=== PATIENT | male | born 2000 | race Caucasian/White ===

== ENCOUNTER 2022-06-30 17:43 | Emergency (ER) | payer OTHER, SELFPAY ==
[2022-06-30 17:54] VITALS: BP 143/74; PULSE 77; RESP 16; TEMP 36.8; O2SAT 100
--- NOTE | 2022-06-30 18:34 | ED.MALEGU ---
HPI - Male Genitourinary General Chief complaint: Urogenital-Male Stated complaint: Unspecified Time Seen by Provider: 06/30/22 18:40 Source: patient, RN notes reviewed and old records reviewed Mode of arrival: ambulatory Limitations: no limitations History of Present Illness HPI Narrative: 21 year old male who presents to expresses concern over girlfriend getting frequently yeast infection concerned he may have yeast infection but denies any drainage or any itching or any redness of penis or excoriation.Patient reports that his girlfriend was treated for yeast infection recently Patient denies any concern for STD exposure Patient denies any urinary frequency urgency or any burning with urination, no testicle pain or any swelling.. MD Complaint: other (concern of yeast infection) Associated symptoms: Reports other (no symptoms) Related Data Sexually active: Yes Home Medications Medication Instructions Recorded Confirmed hydroxyzine HCl 25 mg tablet mg 06/30/22 Allergies Allergy/AdvReac Type Severity Reaction Status Date / Time Penicillins Allergy Severe swelling Verified 09/01/18 18:47 Review of Systems Review of Systems: CONSTITUTIONAL: Denies fever, chills, or sweats. CARDIOVASCULAR: Denies chest pain, palpitations, or edema. RESPIRATORY: Denies cough or dyspnea. GASTROINTESTINAL: Denies abdominal pain, nausea, vomiting, or diarrhea. GENITOURINARY: Denies dysuria, frequency, urgency. Denies flank pain or hematuria, denies any itching or any penis drainage or redness or excoriation SKIN: Denies rash or itching. MUSCULOSKELETAL: Denies back pain or myalgia. Denies CVA tenderness NEUROLOGIC: Denies headache All systems reviewed & are unremarkable except as noted in HPI and below PMFSH Past Medical History Medical History (Updated 07/02/22 @ 08:01 by Dana Alatorre NP) Anxiety Social History Social History (Updated 07/02/22 @ 08:05 by Dana Alatorre NP) Smoking status: Smoker, status unknown Alcohol intake: unknown Living arrangements: with family Gender identity (if verbalized by the patient): Male Comments At time of signature, agree with nursing past medical, surgical, social and family history. There is no relevant family history pertinent to the presenting complaint Exam Narrative: GENERAL: Well-appearing, well-nourished, and in no acute distress. HEAD: Normocephalic, atraumatic. NECK: Supple. no lymphadenopathy CHEST: Clear to auscultation. No respiratory distress.SAO2 100% on room air HEART: Regular rate and rhythm. No murmur heard. Normal peripheral pulses. ABDOMEN: Soft, nontender, nondistended, normal active bowel sounds. No CVA tenderness, no discharge itching excoriation or any testicle pain or swelling,circumcised. EXTREMITIES: Normal range of motion. No edema. SKIN: Warm, dry, no rash. NEURO: No focal deficits. Alert and oriented x3. Course Course Emergency Course: Patient is aware of diagnosis, understands and agrees to treatment plan.? Anticipatory guidance given.? Patient agrees to follow-up as directed and is aware of reasons to seek care at the emergency department. Portions of this record may have been created with voice recognition software Level of Care: Express Care Visit Vital Signs Vital signs: Vital Signs Temperature 36.8 C 06/30/22 17:54 Pulse Rate 77 06/30/22 17:54 Respiratory Rate 16 06/30/22 17:54 Blood Pressure 143/74 H 06/30/22 17:54 Pulse Oximetry 100 06/30/22 17:54 Oxygen Delivery Room Air 06/30/22 17:54 Temperature 36.8 C 06/30/22 17:54 Pulse Rate 77 06/30/22 17:54 Respiratory Rate 16 06/30/22 17:54 Blood Pressure 143/74 H 06/30/22 17:54 Pulse Oximetry 100 06/30/22 17:54 Oxygen Delivery Room Air 06/30/22 17:54 reviewed MDM - Male Genitourinary Differential Diagnosis Differential diagnosis: Likely other ( concern of yeast nfection asymptomatic, well adult) Medical Records Attestation: I reviewed the p
== END 2022-06-30 19:11 | disposition home or self-care (01) ==
PROVIDERS: Emergency Provider Registered Nurse; PCP Family Medicine Sports Medicine
DX: Z03.89 Encounter for observation for other suspected diseases and conditions ruled out (principal); F41.9 Anxiety disorder, unspecified
CPT/HCPCS: 81003; 99202; G0463

== ENCOUNTER 2023-06-21 18:00 | Emergency (ER) | payer OTHER, SELFPAY ==
--- NOTE | ~2023-06-21 | XR_ITS ---
EXAMINATION: XR toe 1st LT min 2V DATE: 06/21/2023 18:56 INDICATION: Blunt trauma to the left great toe TECHNIQUE: Dorsal plantar, lateral and oblique views of the left great toe were obtained. COMPARISON: None FINDINGS: Alignment is normal. No fracture. Joint spaces are normal. Soft tissues are unremarkable. IMPRESSION: Negative left great toe radiographs. Reviewed, dictated and finalized at location A. SERVICE TECHNICIAN
[2023-06-21 18:16] VITALS: BP 148/77; PULSE 97; RESP 20; TEMP 36.7; O2SAT 100
--- NOTE | 2023-06-21 20:04 | ED.LOWEXIN ---
HPI - Extremity Injury (Lower) General Chief Complaint: Extremity Injury, Lower Stated Complaint: Left Big Toe Injury Time Seen by Provider: 06/21/23 19:55 Source: patient, RN notes reviewed and old records reviewed Mode of arrival: ambulatory Limitations: no limitations History of Present Illness HPI Narrative: 22 year old male presents to [facility] care with complaints of injury to his left great toe which occurred on Wednesday when he dropped a 4-boone ramp onto his left great toe. Patient has bruising and swelling to his left great toe with some bruising of nail also. Patient reports that it is painful to ambulate on his left foot and difficult to wear anything but slides to foot. MD complaint: other (lleft great toe injury) Onset (ago): day(s) (day 3 of symptoms) Injury: Left: toes (great toe) Place: home Severity scale (1-10): 5 Treatments prior to arrival: cold therapy and NSAIDS Related Data Home Medications Medication Instructions Recorded Confirmed No Home Medications 06/21/23 06/21/23 Allergies Allergy/AdvReac Type Severity Reaction Status Date / Time Penicillins Allergy Severe swelling Verified 06/21/23 18:46 Review of Systems Review of Systems: CONSTITUTIONAL: Denies fever, chills, or sweats. EYES: Denies visual changes, redness, or discharge. ENT: Denies rhinorrhea, congestion, sore throat, or otalgia. CARDIOVASCULAR: Denies chest pain, palpitations, or edema. RESPIRATORY: Denies cough or dyspnea. GASTROINTESTINAL: Denies abdominal pain, nausea, vomiting, or diarrhea. GENITOURINARY: Denies dysuria or hematuria. SKIN: Denies rash or itching. MUSCULOSKELETAL: Denies back pain, pain to left great toe, or myalgia. NEUROLOGIC: Denies headache, numbness, or weakness. PSYCHIATRIC: Reports history of anxiety or depression. All systems reviewed & are unremarkable except as noted in HPI and below PMFSH Past Medical History Medical History (Updated 06/23/23 @ 09:33 by Dana Alatorre NP) Acne Anxiety Strep throat Social History Social History (Updated 07/02/22 @ 08:05 by Dana Alatorre NP) Smoking status: Smoker, status unknown Alcohol intake: unknown Living arrangements: with family Gender identity (if verbalized by the patient): Male Comments At time of signature, agree with nursing past medical, surgical, social and family history. There is no relevant family history pertinent to the presenting complaint Exam Narrative: GENERAL: Well-appearing, well-nourished, and in no acute distress. HEAD: Normocephalic, atraumatic. EYES: PERRLA and EOMI. ENT: Nares clear, no rhinorrhea or epistaxis. Mucous membranes moist. NECK: Supple. no lymphadenopathy CHEST: Clear to auscultation. No respiratory distress.SAO2 100% on room air HEART: Regular rate and rhythm. No murmur heard. Normal peripheral pulses. ABDOMEN: Soft, nontender, nondistended, normal active bowel sounds. EXTREMITIES: Normal range of motion. No edema.Exception noted to left great toe swelling bruising and pain with bruising noted to nail also, refuses release of pressure to nail by placing hole in nail with cautery. Patient has strong pedal pulse to left foot, foot warm and pink denies any tingling or numbness to his left great toe or foot. SKIN: Warm, dry, no rash. NEURO: No focal deficits. Alert and oriented x3. Course Course Emergency Course: Patient is aware of diagnosis, understands and agrees to treatment plan.? Anticipatory guidance given.? Patient agrees to follow-up as directed and is aware of reasons to seek care at the emergency department. Portions of this record may have been created with voice recognition software Level of Care: Express Care Visit Vital Signs Vital signs: Vital Signs Temperature 36.7 C 06/21/23 18:16 Pulse Rate 97 06/21/23 18:16 Respiratory Rate 20 06/21/23 18:16 Blood Pressure 148/77 H 06/21/23 18:16 Pulse Oximetry 100 06/21/23 18:16 Oxygen Delivery Room Air
== END 2023-06-21 20:20 | disposition home or self-care (01) ==
PROVIDERS: Emergency Provider Registered Nurse
DX: S90.212A Contusion of left great toe with damage to nail, initial encounter (principal); W22.8XXA Striking against or struck by other objects, initial encounter
CPT/HCPCS: 73660; 99213; G0463